=== PATIENT | female | born 1985 | race Hispanic/Latino ===

== ENCOUNTER 2019-04-28 22:17 | Emergency (ER) | payer SELFPAY ==
[2019-04-29] MEDS ORDERED: XYLOCAINE 1% MPF 5 mL INFILTRATI ONE (02:10)
[2019-04-29] MEDS ORDERED: IBUPROFEN PO ONE (02:10)
[2019-04-29] MEDS ORDERED: TYLENOL PO ONE (02:10)
--- NOTE | 2019-04-29 02:19 | Emergency Department Report ---
Upper Extremity - HPI Stated Complaint: Left index finger laceration Time Seen by Provider: 04/29/19 01:05 Upper Extremity: Left Index Finger (laceration with bleeding and pain) Occurred When: Today Mechanism: Other (accidentally cut left index finger) Severity: severe Symptoms: Yes Pain with Movement, Yes Limited Range of Movement (due to pain), Yes Laceration or Abrasion (left index finger), No Deformity, No Numbness, No Weakness, No Swelling, No Bruising/Ecchymosis Other History: Patient is a 33-year-old white female with no past medical history presents to the ED with complaint of acute onset of persistent painful bleeding and also left index finger laceration after she accidentally cut her left index finger while cutting meat at home about 5 hours ago. Patient states that the finger pain is worsened but the bleeding has been controlled. Patient denies numbness, tingling or weakness of left index finger on left hand. ED Review of Systems ROS: Stated complaint: Other details as noted in HPI Constitutional: denies: chills, fever Eyes: denies: eye pain, eye discharge, vision change ENT: denies: ear pain, throat pain Respiratory: denies: cough, shortness of breath, wheezing Cardiovascular: denies: chest pain, palpitations Endocrine: no symptoms reported Gastrointestinal: denies: abdominal pain, nausea, diarrhea Genitourinary: denies: urgency, dysuria, discharge Musculoskeletal: arthralgia (painful left index finger laceration), other (left index finger pain from bleeding laceration). denies: back pain, joint swelling Skin: other (Bleeding left index finger laceration with pain). denies: rash, lesions Neurological: denies: headache, weakness, paresthesias Psychiatric: denies: anxiety, depression Hematological/Lymphatic: denies: easy bleeding, easy bruising ED Past Medical Hx - Past Medical History Previous Medical History?: No - Medications Home Medications: Home Medications Medication Instructions Recorded Confirmed Last Taken Type Ibuprofen [Motrin] 800 mg PO Q8HR PRN #21 tablet 04/29/19 Unknown Rx Sulfamethoxazole/Trimethoprim 1 each PO Q12H #20 tablet 04/29/19 Unknown Rx [Bactrim DS TAB] Upper Extremity Exam - Exam General: Vital signs noted. No distress. Alert and acting appropriately. Head and Torso: No HEENT Abnormality, No Neck Tenderness, No Chest/Lungs Abnormality, No Abdominal Tenderness, No Back Tenderness Shoulder Exam: Yes Normal Range of Motion in Shoulder, No Shoulder Tenderness, No Clavicle Tenderness, No Shoulder Deformity, No AC Joint Tenderness Arm Exam: No Arm/Humerus Tenderness, No Arm Deformity Elbow: Yes Normal Range of Motion in Elbow, No Elbow Tenderness, No Elbow Deformity Forearm: No Forearm Tenderness, No Forearm Deformity, No Pain with Pronation, No Pain with Supination Wrist: Yes Normal ROM in Wrist, No Wrist Tenderness, No Wrist Deformity, No Snu ffbox Tenderness, No Pain with Axial Thumb Compression Hand: Yes Normal ROM in Digit(s), No Hand Tenderness, No Hand Deformity, No Digit Tenderness, No Digit(s) Deformity, No Tendon Dysfunction CMS Exam: Yes Broken Skin (dorsal left index finger laceration), Yes Normal Distal Pulses, Yes Normal Capillary Refill, Yes Normal Distal Sensation ED Course - Reevaluation(s) Reevaluation #1: 04/29/19 02:21 Patient is alert and oriented 3 and is not in distress. Patient was treated fo r pain in the ED and the left index finger was cleaned thoroughly and then local anesthetic lidocaine 1% injected around the in order to create a complete local anesthesia. The left index finger laceration was sutured protocol and the patient tolerated the procedure well. Patient is up to date with her tetanus vaccination. Patient was discharged home on pain medications and prophylactic antibiotics and advised to follow-up with her primary care physician in 7-10 days for reevaluation or return to the ED immediately if symptoms get worse. Patient was otherwise advised to return to the ED or to her primary care physician in 12-14 days for suture removal. - Laceration /Wound Repair Left Distal Finger Wound Location: upper extremity (Dorsal left index finger) Wound Length (cm): 2 Wound's Depth, Shape: superficial Wound Explored: contaminated Irrigated w/ Saline (ccs): 20 Betadine Prep?: Yes Anesthesia: 1% Lidocaine Volume Anesthetic (ccs): 5 Wound Debrided: extensive Wound Repaired With: sutures Suture Size/Type: 4:0 Number of Sutures: 5 Layer Closure?: No Sterile Dressing Applied?: No Progress: Patient tolerated procedure well. ED Medical Decision Making - Medical Decision Making Patient is alert and oriented 3 and is not in distress. Patient was treated for pain in the ED and the left index finger was cleaned thoroughly and then local anesthetic lidocaine 1% injected around the in order to create a complete local anesthesia. The left index finger laceration was sutured protocol and the patient tolerated the procedure well. Patient is up to date with her tetanus vaccination. Patient was discharged home on pain medications and prophylactic antibiotics and advised to follow-up with her primary care physician in 7-10 days for reevaluation or return to the ED immediately if symptoms get worse. Patient was otherwise advised to return to the ED or to her primary care physician in 12-14 days for suture removal. - Differential Diagnosis Left index finger laceration; abrasions; tendon injury of left index finger Critical care attestation.: If time is entered above; I have spent that time in minutes in the direct care of this critically ill patient, excluding procedure time. ED Disposition Clinical Impression: Laceration of left index finger w/o foreign body w/o damage to nail Qualifiers: Encounter type: initial encounter Qualified Code(s): S61.211A - Laceration without foreign body of left index finger without damage to nail, initial encounter Disposition: TO HOME OR SELFCARE Is pt being admited?: No Does the pt Need Aspirin: No Condition: Stable Instructions: Laceration (ED), Finger Laceration (ED) Additional Instructions: Take medications with food, drink plenty of fluids and follow up with your primary care physician in 7-10 days for reevaluation. Return to the ED immediately if symptoms get worse, otherwise return to the ED or to her primary care physician in 12-14 days for suture removal. Prescriptions: Sulfamethoxazole/Trimethoprim [Bactrim DS TAB] 1 each PO Q12H #20 tablet Ibuprofen [Motrin] 800 mg PO Q8HR PRN #21 tablet PRN Reason: Pain , Severe (7-10) Referrals: PRIMARY CARE,MD [Primary Care Provider] - 3-5 Days Time of Disposition: 02:27 Print Language: MALTESE
== END 2019-04-29 03:05 | disposition home or self-care (01) ==
LOC: ED 22:17
DX: S61.211A Laceration without foreign body of left index finger without damage to nail, initial encounter (principal); W26.8XXA Contact with other sharp object(s), not elsewhere classified, initial encounter; Y93.89 Activity, other specified; Y92.89 Other specified places as the place of occurrence of the external cause; Y99.8 Other external cause status